=== PATIENT | male | born 1950 | race Caucasian/White ===

== ENCOUNTER 2020-01-15 14:50 | Emergency (ER) | payer MEDICARE ==
[~2020-01-15] VITALS: Ht 172.7 cm; Wt 79.3 kg
[2020-01-15] MEDS ORDERED: MECLIZINE 25 MG TABLET PO ONE (15:30)
--- NOTE | 2020-01-15 15:56 | REPVR ---
PROCEDURE INFORMATION: Exam: XR Chest, 1 View Exam date and time: 01/15/2020 3:45 PM Age: 69 years old Clinical indication: Other: CVA TECHNIQUE: Imaging protocol: XR of the chest Views: 1 view. COMPARISON: No relevant prior studies available. FINDINGS: Lungs: Hyperinflation, without acute airspace disease. Pleural space: No pleural effusion. Heart/Mediastinum: Cardiac silhouette upper limits of normal in size. Vasculature: Ectasia of the thoracic aorta. Bones/joints: Degenerative change. IMPRESSION: Hyperinflation, without acute airspace or pleural disease. Electronically signed by: Srikanth Donnelly On 01/15/2020 15:56:20 PM
[2020-01-15] MEDS ORDERED: ISOVUE-370 76% 100ML VIAL As Ordered ONE (15:58)
[2020-01-15 16:12] LABS: BASO # 0.1 10^3/uL (0.0-0.2); BASO % 0.5 % (0.0-1.0); EOS # 0.1 10^3/uL (0.0-0.5); HEMATOCRIT 44.7 % (42.0-52.0); HEMOGLOBIN 15.3 g/dl (13.5-17.5); LYMPH # 1.6 10^3/uL (1.5-5.0); LYMPH % 16.2 % (24.0-44.0); MEAN CORPUSCULAR HEMOGLOBIN 30.9 pg (27.0-33.0); MEAN CORPUSCULAR HGB CONC 34.2 g/dl (32.0-36.5); MEAN CORPUSCULAR VOLUME 90.3 fl (80.0-96.0); MONO # 0.7 10^3/uL (0.0-0.8); MONO % 7.6 % (0.0-5.0); NEUTROPHILS # 7.2 10^3/uL (1.5-8.5); NEUTROPHILS % 74.3 % (36.0-66.0); PLATELET COUNT, AUTOMATED 239 10^3/uL (150-450); RED BLOOD COUNT 4.95 10^6/uL (4.30-6.10); WHITE BLOOD COUNT 9.7 10^3/uL (4.0-10.0)
[2020-01-15 16:19] VITALS: BP 192/92
[2020-01-15 16:22] LABS: PROTHROMBIN TIME 13.4 SECONDS (11.8-14.0)
[2020-01-15 16:23] LABS: PARTIAL THROMBOPLASTIN TIME 29.8 SECONDS (25.0-38.4)
--- NOTE | 2020-01-15 16:32 | REPVR ---
PROCEDURE INFORMATION: Exam: CT Head Without Contrast Exam date and time: 01/15/2020 4:21 PM Age: 69 years old Clinical indication: Dizziness; Additional info: CVA - nursing interventions must not delay CT TECHNIQUE: Imaging protocol: Computed tomography of the head without contrast. Radiation optimization: All CT scans at this facility use at least one of these dose optimization techniques: automated exposure control; mA and/or kV adjustment per patient size (includes targeted exams where dose is matched to clinical indication); or iterative reconstruction. Other technique: STROKE PROTOCOL was implemented. COMPARISON: No relevant prior studies available. FINDINGS: Brain: Symmetric prominence of the cortical sulci. Minimal small vessel ischemic change. No acute cortical infarct, mass effect, or intracranial hemorrhage. Ventricles: Normal configuration of the ventricles. Bones/joints: No acute calvarial pathology. Sinuses: 6 mm polypoid lesion in the left maxillary sinus. Mastoid air cells: No mastoid effusion. Soft tissues: Unremarkable soft tissues. IMPRESSION: No acute intracranial pathology. ASSESSMENT: ASPECTS (Nithya Stroke Program Early CT Score) is 10. THIS REPORT CONTAINS FINDINGS THAT MAY BE CRITICAL TO PATIENT CARE. The findings were verbally communicated via telephone conference with RIGOBERTO Burrows at 4:32 PM EDT on 01/15/2020. The findings were acknowledged and understood. Electronically signed by: Srikanth Donnelly On 01/15/2020 16:32:57 PM
--- NOTE | 2020-01-15 16:38 | REPVR ---
PROCEDURE INFORMATION: Exam: CT Angiography Neck With Contrast Exam date and time: 01/15/2020 4:21 PM Age: 69 years old Clinical indication: Dizziness and giddiness; Additional info: CVA - nursing interventions must not delay CT TECHNIQUE: Imaging protocol: Computed tomography angiography of the neck with intravenous contrast. 3D rendering (Not supervised by radiologist): MIP and/or 3D reconstructed images were created by the technologist. Radiation optimization: All CT scans at this facility use at least one of these dose optimization techniques: automated exposure control; mA and/or kV adjustment per patient size (includes targeted exams where dose is matched to clinical indication); or iterative reconstruction. Contrast material: ISOVUE 370; Contrast volume: 100 ml; Contrast route: INTRAVENOUS (IV); COMPARISON: No relevant prior studies available. FINDINGS: Right common carotid artery: No stenosis. No dissection or occlusion. Right internal carotid artery: There is calcified plaque in the proximal right internal carotid artery without stenosis. Right external carotid artery: No occlusion or stenosis of the origin. Right vertebral artery: The right vertebral artery is dominant. No stenosis. No dissection. Left common carotid artery: No stenosis. No dissection or occlusion. Left internal carotid artery: There is calcified plaque in the proximal left internal carotid artery without stenosis. Left external carotid artery: No occlusion or stenosis of the origin. Left vertebral artery: The left vertebral artery is markedly obscured by contrast in adjacent venous structures. The left vertebral artery is hypoplastic. No stenosis or dissection identified. Subclavian arteries: There is an aberrant origin of the right subclavian artery. This arises as the most distal vessel of the aortic arch. It passes posterior to the esophagus and trachea to reach the right subclavian region. No stenosis. No aneurysm. Other vasculature: Of additional note is vascular compression of the innominate vein . This results in severe narrowing and extensive opacification of collateral veins by contrast. Bones/joints: No acute fracture. Soft tissues: Normal. No significant soft tissue swelling. IMPRESSION: 1. No carotid or vertebral artery stenosis. 2. Aberrant origin of the right subclavian artery. 3. 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 REFERENCES: NASCET CRITERIA. The degree of internal carotid artery stenosis is based on NASCET criteria. Normal is no stenosis. Mild is less than 50% stenosis. Moderate is 50-69% stenosis. Severe is 70% to 99% stenosis. Total occlusion is no detectable patent lumen. Electronically signed by: Scotty Prater On 01/15/2020 16:38:25 PM
--- NOTE | 2020-01-15 16:44 | REPVR ---
PROCEDURE INFORMATION: Exam: CT Angiography Head With Contrast Exam date and time: 01/15/2020 4:21 PM Age: 69 years old Clinical indication: Dizziness and giddiness; Additional info: CVA - nursing interventions must not delay CT TECHNIQUE: Imaging protocol: Computed tomography angiography of the head with intravenous contrast. 3D rendering (Not supervised by radiologist): MIP and/or 3D reconstructed images were created by the technologist. Radiation optimization: All CT scans at this facility use at least one of these dose optimization techniques: automated exposure control; mA and/or kV adjustment per patient size (includes targeted exams where dose is matched to clinical indication); or iterative reconstruction. Contrast material: ISOVUE 370; Contrast volume: 100 ml; Contrast route: INTRAVENOUS (IV); COMPARISON: No relevant prior studies available. FINDINGS: ANTERIOR CIRCULATION: Right internal carotid artery: Unremarkable. Intracranial segment is patent with no significant stenosis. No aneurysm. Right middle cerebral artery: Unremarkable. No occlusion or significant stenosis. No aneurysm. Right anterior cerebral artery: Unremarkable. No occlusion or significant stenosis. No aneurysm. Left internal carotid artery: Unremarkable. Intracranial segment is patent with no significant stenosis. No aneurysm. Left middle cerebral artery: Unremarkable. No occlusion or significant stenosis. No aneurysm. Left anterior cerebral artery: Unremarkable. No occlusion or significant stenosis. No aneurysm. POSTERIOR CIRCULATION: Right vertebral artery: The right vertebral artery is dominant. No stenosis. No aneurysm. Left vertebral artery: The left vertebral artery is hypoplastic and terminates as the left PICA. Basilar artery: Unremarkable. No occlusion or significant stenosis. No aneurysm. Right posterior cerebral artery: As best seen on series 505 image 59 there is a 2 mm probable infundibulum of the right posterior communicating artery. No aneurysm identified. Left posterior cerebral artery: Unremarkable. No occlusion or significant stenosis. No aneurysm. IMPRESSION: No intracranial stenosis or occlusion. THIS REPORT CONTAINS FINDINGS THAT MAY BE CRITICAL TO PATIENT CARE. The findings were verbally communicated via telephone conference with RIGOBERTO STOKES at 4:40 PM EDT on 01/15/2020, prior to finalized report.. The findings were acknowledged and understood. Electronically signed by: Scotty Prater On 01/15/2020 16:44:30 PM
[2020-01-15] MEDS ORDERED: LOSARTAN 50MG TABLET PO ONE (17:00)
[2020-01-15 17:57] VITALS: BP_SYST 162; BP_SYST 192; BP_DIAS 80; BP_DIAS 92
--- NOTE | 2020-02-07 14:48 | ECGEPIP ---
[facility] - ED Test Date: 2020-01-15 Pat Name: DEBI ARAUJO Department: Room: - Gender: Male Transition Of Care Specialist: : [id number] Requested By: Nicole Thomas Order Number: [id number] Reading MD: Carlotta Conway Measurements Intervals [place] Rate: 69 P: 30 MN: 212 QRS: -13 QRSD: 92 T: -4 QT: 380 QTc: 409 Interpretive Statements SINUS RHYTHM WITH FIRST DEGREE AV BLOCK WITH OCCASIONAL VENTRICULAR PREMATURE COMPLEXES VOLTAGE CRITERIA FOR LVH ABNORMAL ECG NONSPECIFIC STT WAVE ABNORMALITY SEE SCANNED DOWNTIME REPORT.
== END 2020-01-15 18:48 | disposition home or self-care (01) ==
LOC: EDBD 14:50 → M ED 14:50
DX: R01.1 Cardiac murmur, unspecified (principal); R42 Dizziness and giddiness; R94.31 Abnormal electrocardiogram [ECG] [EKG]; I10 Essential (primary) hypertension; I77.89 Other specified disorders of arteries and arterioles; F17.210 Nicotine dependence, cigarettes, uncomplicated
CPT/HCPCS: 36415; 70450; 70496; 70498; 71045; 80047; 84484; 85025; 85610; 85730; 86850; 86900; 86901; 93005; 93041; 94760; 99285; Q9967

== ENCOUNTER → 2020-07-22 | Outpatient (REF) | payer MEDICARE ==
[2020-07-22 13:51] LABS: BLOOD UREA NITROGEN 11 MG/DL (7-18); CALCIUM LEVEL 9.7 MG/DL (8.8-10.2); CARBON DIOXIDE LEVEL 32 MEQ/L (21-32); CHLORIDE LEVEL 103 MEQ/L (98-107); CHOLESTEROL LEVEL 199 MG/DL (<200); CHOLESTEROL RISK RATIO 4.627 (<5); CREATININE FOR GFR 0.99 MG/DL (0.70-1.30); GLOMERULAR FILTRATION RATE > 60.0 (>42); GLUCOSE, FASTING 94 MG/DL (70-100); HDL CHOLESTEROL 43 MG/DL (>40); LDL CHOLESTEROL 131 MG/DL (<100); NON-HDL-C 156 MG/DL; POTASSIUM SERUM 4.9 MEQ/L (3.5-5.1); SODIUM LEVEL 138 MEQ/L (136-145); TRIGLYCERIDES LEVEL 126 MG/DL (<150)
== END ==
LOC: M SFHCPLAZ 10:19
PROVIDERS: ATTEND Family Medicine
DX: I10 Essential (primary) hypertension (principal); Z13.220 Encounter for screening for lipoid disorders; Z13.1 Encounter for screening for diabetes mellitus; Z79.899 Other long term (current) drug therapy
CPT/HCPCS: 36415; 80048; 80061; 83036; G0463

== ENCOUNTER → 2020-08-11 | Outpatient (REF) | payer MEDICARE ==
[2020-08-11 17:32] LABS: ALBUMIN 3.6 GM/DL (3.2-5.2); BILIRUBIN,DIRECT 0.2 MG/DL (0.0-0.2); BILIRUBIN,TOTAL 0.9 MG/DL (0.2-1.0); TOTAL PROTEIN 6.4 GM/DL (6.4-8.2)
== END ==
LOC: M SFHCPLAZ 15:08
PROVIDERS: ATTEND Family Medicine
DX: E78.00 Pure hypercholesterolemia, unspecified (principal)
CPT/HCPCS: 36415; 80076; G0463

== ENCOUNTER → 2022-03-31 | Outpatient (CLI) | payer MEDICARE ==
[2022-03-31 16:47] LABS: HEMATOCRIT 28.7 % (42.0-52.0); MEAN CORPUSCULAR HEMOGLOBIN 34.1 pg (27.0-33.0); MEAN CORPUSCULAR HGB CONC 31.4 g/dl (32.0-36.5); MEAN CORPUSCULAR VOLUME 108.7 fl (80.0-96.0); PLATELET COUNT, AUTOMATED 140 10^3/uL (150-450); RED BLOOD COUNT 2.64 10^6/uL (4.30-6.10); WHITE BLOOD COUNT 8.2 10^3/uL (4.0-10.0)
[2022-03-31 17:13] LABS: ERYTHROCYTE SEDIMENTATION RATE 26 mm/hr (0-20)
[2022-03-31 17:31] LABS: ALBUMIN 3.3 GM/DL (3.2-5.2); ALT/SGPT 20 U/L (12-78); BILIRUBIN,TOTAL 2.9 MG/DL (0.2-1.0); BLOOD UREA NITROGEN 21 MG/DL (7-18); C REACTIVE PROTEIN QUANTITATIV 0.34 MG/DL (0.00-0.30); CALCIUM LEVEL 8.7 MG/DL (8.8-10.2); CARBON DIOXIDE LEVEL 26 MEQ/L (21-32); CHLORIDE LEVEL 104 MEQ/L (98-107); CREATININE FOR GFR 1.09 MG/DL (0.70-1.30); FREE T4 1.04 NG/DL (0.76-1.46); GLOMERULAR FILTRATION RATE > 60.0 (>42); GLUCOSE, FASTING 97 MG/DL (70-100); POTASSIUM SERUM 4.3 MEQ/L (3.5-5.1); SODIUM LEVEL 136 MEQ/L (136-145)
[2022-03-31 19:29] LABS: ATYPICAL LYMPH 1 % (0-5); EOSINOPHILS 8 % (0-3); LYMPHOCYTES 26 % (16-44); MONOCYTES 3 % (0-5); NEUTROPHILS 61 % (28-66)
[2022-03-31 19:30] LABS: ANISOCYTOSIS 3+; PLATELET ESTIMATE DECREASED (NORMAL); POLYCHROMASIA 1+
[2022-03-31 19:32] LABS: BURR CELLS 1+
== END ==
LOC: M WUC 11:09
PROVIDERS: ATTEND Physician Assistant
DX: R63.4 Abnormal weight loss (principal)

== ENCOUNTER → 2022-04-04 | Outpatient (CLI) | payer MEDICARE ==
[2022-04-04 17:18] LABS: HEMATOCRIT 27.5 % (42.0-52.0); HEMOGLOBIN 8.9 g/dl (13.5-17.5); MEAN CORPUSCULAR HEMOGLOBIN 34.8 pg (27.0-33.0); MEAN CORPUSCULAR HGB CONC 32.4 g/dl (32.0-36.5); MEAN CORPUSCULAR VOLUME 107.4 fl (80.0-96.0); PLATELET COUNT, AUTOMATED 149 10^3/uL (150-450); RED BLOOD COUNT 2.56 10^6/uL (4.30-6.10); WHITE BLOOD COUNT 7.3 10^3/uL (4.0-10.0)
[2022-04-04 17:55] LABS: IRON (FE) 76 UG/DL (65-175); PERCENT SATURATION 32.8 % (19.7-50.0); TOTAL IRON BINDING CAPACITY 232 UG/DL (250-450)
[2022-04-04 18:27] LABS: FOLATE 3.2 NG/ML (>5.4); VITAMIN B12 LEVEL > 2000 PG/ML (247-911)
[2022-04-04 19:28] LABS: ANISOCYTOSIS 4+; ATYPICAL LYMPH 9 % (0-5); BLAST CELLS 2 % (0-0); EOSINOPHILS 3 % (0-3); LYMPHOCYTES 20 % (16-44); MICROCYTOSIS 2+; MONOCYTES 5 % (0-5); NEUTROPHILS 57 % (28-66); PLATELET ESTIMATE NORMAL (NORMAL); POLYCHROMASIA 1+
== END ==
LOC: M WUC 14:00
PROVIDERS: ATTEND Physician Assistant
DX: D64.9 Anemia, unspecified (principal)

== ENCOUNTER → 2022-04-14 | Outpatient (REF) | payer MEDICARE ==
[2022-04-14 19:22] LABS: BACTERIA, URINE NONE SEEN; HYALINE CAST, URINE NONE SEEN /lpf (0-1); RBC, URINE NONE SEEN /hpf (0-3); SQUAMOUS EPITHELIAL CELL URINE NONE SEEN /hpf (SMALL AMT); WBC, URINE NONE SEEN /hpf (0-3)
== END ==
LOC: M LAB REF 16:22
PROVIDERS: ATTEND Physician Assistant Medical
DX: R31.9 Hematuria, unspecified (principal)

== ENCOUNTER → 2022-05-16 | Outpatient (REF) | payer MEDICARE ==
[2022-05-16 15:14] LABS: HEMATOCRIT 28.3 % (42.0-52.0); HEMOGLOBIN 8.7 g/dl (13.5-17.5); MEAN CORPUSCULAR HEMOGLOBIN 34.8 pg (27.0-33.0); MEAN CORPUSCULAR HGB CONC 30.7 g/dl (32.0-36.5); MEAN CORPUSCULAR VOLUME 113.2 fl (80.0-96.0)
[2022-05-16 15:16] LABS: PLATELET COUNT, AUTOMATED 71 10^3/uL (150-450)
[2022-05-16 15:22] LABS: WHITE BLOOD COUNT 94.3 10^3/uL (4.0-10.0)
[2022-05-16 15:44] LABS: INR 1.19; PROTHROMBIN TIME 15.4 SECONDS (12.5-14.5)
[2022-05-16 15:45] LABS: PARTIAL THROMBOPLASTIN TIME 30.4 SECONDS (24.8-34.2)
[2022-05-16 16:12] LABS: EOSINOPHILS 3 % (0-3); LYMPHOCYTES 1 % (16-44); METAMYELOCYTES 3 % (0-0); MONOCYTES 2 % (0-5); MYELOCYTES 2 % (0-0); NEUTROPHILS 12 % (28-66); PROMYELOCYTES 3 % (0-0)
[2022-05-16 16:13] LABS: ANISOCYTOSIS 1+; BLAST CELLS 72 % (0-0); HYPOCHROMASIA 1+; PLATELET ESTIMATE DECREASED (NORMAL)
[2022-05-16 16:14] LABS: TEAR DROP CELLS 1+
== END ==
LOC: M LAB REF 14:35
PROVIDERS: ATTEND Internal Medicine Hematology & Oncology
DX: D72.829 Elevated white blood cell count, unspecified (principal)

== ENCOUNTER → 2022-06-06 | Outpatient (REF) | payer MEDICARE ==
[~2022-06-06] MED LIST: FLUC200T4; FOLI1TAB11; LEVO1TAB39; ONDA4TAB6; OXYC-517; PROC10TA5; SENN1TAB89; VALA500T5; VENC100T
[2022-06-06 12:03] LABS: EOS % 2.4 % (0.0-3.0); HEMATOCRIT 24.3 % (42.0-52.0); LYMPH # 0.4 10^3/uL (1.5-5.0); LYMPH % 48.2 % (24.0-44.0); MEAN CORPUSCULAR HEMOGLOBIN 32.8 pg (27.0-33.0); MEAN CORPUSCULAR HGB CONC 32.9 g/dl (32.0-36.5); MEAN CORPUSCULAR VOLUME 99.6 fl (80.0-96.0); MONO # 0.1 10^3/uL (0.0-0.8); MONO % 9.6 % (2.0-8.0); NEUTROPHILS % 38.6 % (36.0-66.0); RED BLOOD COUNT 2.44 10^6/uL (4.30-6.10)
[2022-06-06 12:21] LABS: INR 1.4; NEUTROPHILS # 0.3 10^3/uL (1.5-8.5); PROTHROMBIN TIME 17.4 SECONDS (12.5-14.5); WHITE BLOOD COUNT 0.8 10^3/uL (4.0-10.0)
[2022-06-06 12:22] LABS: PARTIAL THROMBOPLASTIN TIME 37.4 SECONDS (24.8-34.2); PLATELET COUNT, AUTOMATED 36 10^3/uL (150-450)
== END ==
LOC: M LAB REF 12:37
PROVIDERS: ATTEND Internal Medicine Hematology & Oncology
DX: D72.829 Elevated white blood cell count, unspecified (principal)

== ENCOUNTER 2022-06-15 15:00 | Inpatient (IN) | payer MEDICARE ==
[2022-06-15] VITALS (11 sets, daily range): BP systolic 109–155; BP diastolic 65–94
[~2022-06-15 15:00] MED LIST changes: -FLUC200T4; +FLUC200T4 PO; -FOLI1TAB11; +FOLI1TAB11 PO; -LEVO1TAB39; +LEVO1TAB39 PO; -ONDA4TAB6; +ONDA4TAB6 PO; -OXYC-517; +OXYC-517 PO; -PROC10TA5; +PROC10TA5 PO; -SENN1TAB89; +SENN1TAB89 PO; -VALA500T5; +VALA500T5 PO; -VENC100T; +VENC100T PO
[2022-06-15 17:29] LABS: RSV AMPLIFICATION NEGATIVE (NEGATIVE)
[2022-06-15] MEDS ORDERED: HOME MED LIST COMPLETE! XX SCH (17:35)
[2022-06-15] MEDS ORDERED: oxyCODONE 5MG TAB PO PRN (20:05)
[2022-06-15] MEDS ORDERED: PROCHLORPERAZINE 5MG TAB PO PRN (20:05)
[2022-06-15] MEDS ORDERED: SENOKOT S TAB PO PRN (20:05)
[2022-06-15] MEDS: valACYclovir HCL 500 MG TAB PO SCH (22:54)
[2022-06-16 01:20] VITALS: BP 152/81
[2022-06-16 06:32] VITALS: BP 140/81
[2022-06-16 07:32] LABS: EOS % 1.6 % (0.0-3.0); LYMPH # 0.5 10^3/uL (1.5-5.0); LYMPH % 87.1 % (24.0-44.0); MEAN CORPUSCULAR HEMOGLOBIN 31.1 pg (27.0-33.0); MEAN CORPUSCULAR HGB CONC 33.6 g/dl (32.0-36.5); MEAN CORPUSCULAR VOLUME 92.6 fl (80.0-96.0); MONO % 1.6 % (2.0-8.0); NEUTROPHILS % 9.7 % (36.0-66.0); PLATELET COUNT, AUTOMATED 143 10^3/uL (150-450)
[2022-06-16 07:45] LABS: NEUTROPHILS # 0.1 10^3/uL (1.5-8.5); WHITE BLOOD COUNT 0.6 10^3/uL (4.0-10.0)
[2022-06-16 07:46] LABS: HEMOGLOBIN 8.4 g/dl (13.5-17.5)
[2022-06-16 08:04] LABS: MAGNESIUM LEVEL 1.7 MG/DL (1.8-2.4)
[2022-06-16 08:12] LABS: ALBUMIN 2.7 G/DL (3.2-5.2); ALKALINE PHOSPHATASE 91 U/L (46-116); ALT/SGPT 10 U/L (7.0-40); AST/SGOT 14 U/L (<34); BILIRUBIN,TOTAL 1.5 MG/DL (0.3-1.2); BLOOD UREA NITROGEN 22 MG/DL (9-23); CALCIUM LEVEL 8.4 MG/DL (8.3-10.6); CARBON DIOXIDE LEVEL 26 MMOL/L (20-31); CHLORIDE LEVEL 103 MMOL/L (98-107); CREATININE FOR GFR 0.84 MG/DL (0.70-1.30); GLOMERULAR FILTRATION RATE > 60.0 (>42); GLUCOSE, FASTING 95 MG/DL (74-106); POTASSIUM SERUM 4.4 MMOL/L (3.5-5.1); SODIUM LEVEL 133 MMOL/L (136-145); TOTAL PROTEIN 5.5 G/DL (5.7-8.2)
[2022-06-16] MEDS ORDERED: FOLIC ACID 1MG TAB PO SCH (09:00)
[2022-06-16] MEDS ORDERED: FLUCONAZOLE 100 MG TAB PO SCH (09:00)
[2022-06-16] MEDS: valACYclovir HCL 500 MG TAB PO SCH (09:54)
[2022-06-16] MEDS ORDERED: LevoFLOXacin 500 MG TABLET PO SCH (12:00)
== END 2022-06-16 13:47 | disposition home or self-care (01) | DRG 836 ==
LOC: M ED 15:00 → M ED INP 20:01 → ENRESERV 06-16 00:01 → M MSPAV 06-16 01:25
PROVIDERS: ADMIT Internal Medicine; ATTEND Internal Medicine
PROC: 30233N1 Transfusion of Nonautologous Red Blood Cells into Peripheral Vein, Percutaneous Approach (ICD-10-PCS; principal; 2022-06-15)
DX: C92.00 Acute myeloblastic leukemia, not having achieved remission (principal); I10 Essential (primary) hypertension; I48.91 Unspecified atrial fibrillation; D64.9 Anemia, unspecified; Z79.899 Other long term (current) drug therapy

== ENCOUNTER → 2022-07-01 | Outpatient (CLI) | payer MEDICARE ==
[~2022-07-01] MED LIST changes: +ELIQ5TAB PO; +LIDO1CRE42 TOP; +XARE1TAB PO
== END ==
LOC: M RAD 15:05
PROVIDERS: ATTEND Nurse Practitioner
DX: R22.42 Localized swelling, mass and lump, left lower limb (principal); M79.605 Pain in left leg

== ENCOUNTER 2022-10-11 21:37 | Emergency (ER) | payer MEDICARE ==
[~2022-10-11] VITALS: Ht 172.7 cm; Wt 76.2 kg
[~2022-10-11 21:37] MED LIST changes: +SENN-134 PO; -SENN1TAB89 PO; +VENC100T
[2022-10-12 02:00] LABS: BASO % 0.4 % (0.0-1.0); HEMATOCRIT 35.7 % (42.0-52.0); HEMOGLOBIN 12.1 g/dl (13.5-17.5); LYMPH # 0.8 10^3/uL (1.5-5.0); LYMPH % 30.2 % (24.0-44.0); MEAN CORPUSCULAR HEMOGLOBIN 32.9 pg (27.0-33.0); MEAN CORPUSCULAR HGB CONC 33.9 g/dl (32.0-36.5); MONO # 0.1 10^3/uL (0.0-0.8); MONO % 4.7 % (2.0-8.0); NEUTROPHILS # 1.6 10^3/uL (1.5-8.5); NEUTROPHILS % 64.3 % (36.0-66.0); PLATELET COUNT, AUTOMATED 158 10^3/uL (150-450); RED BLOOD COUNT 3.68 10^6/uL (4.30-6.10); WHITE BLOOD COUNT 2.6 10^3/uL (4.0-10.0)
[2022-10-12 02:19] LABS: LIPASE 23 U/L (12-53)
[2022-10-12 02:21] LABS: ALBUMIN 3.1 G/DL (3.2-5.2); ALKALINE PHOSPHATASE 55 U/L (46-116); ALT/SGPT 12 U/L (7.0-40); AST/SGOT 13 U/L (<34); BILIRUBIN,DIRECT 0.3 MG/DL (<0.4); BILIRUBIN,TOTAL 0.9 MG/DL (0.3-1.2); BLOOD UREA NITROGEN 12 MG/DL (9-23); CALCIUM LEVEL 8.8 MG/DL (8.3-10.6); CARBON DIOXIDE LEVEL 26 MMOL/L (20-31); CHLORIDE LEVEL 103 MMOL/L (98-107); CREATININE FOR GFR 0.95 MG/DL (0.70-1.30); GLOMERULAR FILTRATION RATE > 60.0 (>42); GLUCOSE, FASTING 125 MG/DL (74-106); POTASSIUM SERUM 3.8 MMOL/L (3.5-5.1); SODIUM LEVEL 136 MMOL/L (136-145); TOTAL PROTEIN 5.1 G/DL (5.7-8.2)
[2022-10-12] MEDS ORDERED: ISOVUE-370 76% 100ML VIAL As Ordered ONE (02:35)
[2022-10-12 03:30] VITALS: BP 152/83
[2022-10-12] MEDS ORDERED: AUGMENTIN 875 MG TAB PO ONE (05:30)
[2022-10-12] MEDS ORDERED: AMOX875T2 PO (05:32)
== END 2022-10-12 05:52 | disposition home or self-care (01) ==
LOC: M ED 21:37
DX: K57.32 Diverticulitis of large intestine without perforation or abscess without bleeding (principal); R91.1 Solitary pulmonary nodule; G43.909 Migraine, unspecified, not intractable, without status migrainosus; I10 Essential (primary) hypertension; Z86.718 Personal history of other venous thrombosis and embolism; Z79.01 Long term (current) use of anticoagulants; Z79.2 Long term (current) use of antibiotics; Z79.899 Other long term (current) drug therapy
CPT/HCPCS: 71046; 74177; 80048; 80076; 81001; 83605; 83690; 85025; 87040; 87486; 87581; 87633; 87798; 93041; 94760; 96374; 99284; Q9967

== ENCOUNTER → 2022-10-26 | Outpatient (CLI) | payer MEDICARE ==
[~2022-10-26] MED LIST changes: +AMOX875T2 PO; +ISOVUE-370 76% 100ML VIAL As Ordered ONE; -LIDO1CRE42 TOP; +LIDO30CR18 TOP
== END ==
LOC: M RAD 08:06
PROVIDERS: ATTEND Nurse Practitioner
DX: C90.00 Multiple myeloma not having achieved remission (principal)

== ENCOUNTER → 2023-03-15 | Outpatient (REF) | payer MEDICARE ==
[~2023-03-15] MED LIST changes: -ISOVUE-370 76% 100ML VIAL As Ordered ONE
[2023-03-15 14:50] LABS: EOS # 0.1 10^3/uL (0.0-0.5); EOS % 1.7 % (0.0-3.0); HEMOGLOBIN 11.9 g/dl (13.5-17.5); LYMPH # 2.2 10^3/uL (1.5-5.0); LYMPH % 62.4 % (24.0-44.0); MEAN CORPUSCULAR HEMOGLOBIN 34.4 pg (27.0-33.0); MEAN CORPUSCULAR VOLUME 98.3 fl (80.0-96.0); MONO % 27.9 % (2.0-8.0); NEUTROPHILS % 7.7 % (36.0-66.0); RED BLOOD COUNT 3.46 10^6/uL (4.30-6.10); WHITE BLOOD COUNT 3.5 10^3/uL (4.0-10.0)
[2023-03-15 15:10] LABS: NEUTROPHILS # 0.3 10^3/uL (1.5-8.5); PLATELET COUNT, AUTOMATED 65 10^3/uL (150-450)
[2023-03-15 15:24] LABS: ALBUMIN 3.3 G/DL (3.2-5.2); ALKALINE PHOSPHATASE 47 U/L (46-116); ALT/SGPT 10 U/L (7.0-40); AST/SGOT 10 U/L (<34); BILIRUBIN,TOTAL 2.1 MG/DL (0.3-1.2); BLOOD UREA NITROGEN 14 MG/DL (9-23); CALCIUM LEVEL 8.7 MG/DL (8.3-10.6); CARBON DIOXIDE LEVEL 30 MMOL/L (20-31); CHLORIDE LEVEL 101 MMOL/L (98-107); CREATININE FOR GFR 1.05 MG/DL (0.70-1.30); GLOMERULAR FILTRATION RATE > 60.0 (>42); GLUCOSE, FASTING 94 MG/DL (74-106); POTASSIUM SERUM 3.9 MMOL/L (3.5-5.1); SODIUM LEVEL 137 MMOL/L (136-145)
== END ==
LOC: M LAB REF 14:07
PROVIDERS: ATTEND Internal Medicine
DX: C92.A0 Acute myeloid leukemia with multilineage dysplasia, not having achieved remission (principal); D72.829 Elevated white blood cell count, unspecified

== ENCOUNTER → 2023-03-22 | Outpatient (REF) | payer MEDICARE ==
[2023-03-22 08:29] LABS: HEMATOCRIT 35.8 % (42.0-52.0); HEMOGLOBIN 12.2 g/dl (13.5-17.5); MEAN CORPUSCULAR HEMOGLOBIN 33.8 pg (27.0-33.0); MEAN CORPUSCULAR HGB CONC 34.1 g/dl (32.0-36.5); MEAN CORPUSCULAR VOLUME 99.2 fl (80.0-96.0); RED BLOOD COUNT 3.61 10^6/uL (4.30-6.10)
[2023-03-22 08:31] LABS: PLATELET COUNT, AUTOMATED 41 10^3/uL (150-450)
[2023-03-22 08:54] LABS: ALBUMIN 3.6 G/DL (3.2-5.2); ALKALINE PHOSPHATASE 51 U/L (46-116); ALT/SGPT 9 U/L (7.0-40); AST/SGOT 10 U/L (<34); BILIRUBIN,TOTAL 2.2 MG/DL (0.3-1.2); BLOOD UREA NITROGEN 17 MG/DL (9-23); CALCIUM LEVEL 8.8 MG/DL (8.3-10.6); CARBON DIOXIDE LEVEL 30 MMOL/L (20-31); CHLORIDE LEVEL 104 MMOL/L (98-107); CREATININE FOR GFR 1.12 MG/DL (0.70-1.30); GLOMERULAR FILTRATION RATE > 60.0 (>42); GLUCOSE, FASTING 91 MG/DL (74-106); POTASSIUM SERUM 4.2 MMOL/L (3.5-5.1); SODIUM LEVEL 139 MMOL/L (136-145); TOTAL PROTEIN 5.4 G/DL (5.7-8.2)
== END ==
LOC: M LAB REF 07:45
PROVIDERS: ATTEND Nurse Practitioner
DX: C92.A0 Acute myeloid leukemia with multilineage dysplasia, not having achieved remission (principal); D72.829 Elevated white blood cell count, unspecified

== ENCOUNTER 2023-04-07 06:39 | Outpatient (CLI) | payer MEDICARE ==
[~2023-04-07] VITALS: Ht 172.7 cm; Wt 75.4 kg
[~2023-04-07 06:39] MED LIST changes: +ALLO300T2; +ALLO300T2 PO; +ONDA-83 PO
[2023-04-07 06:52] VITALS: BP 164/90; O2SAT 97
[2023-04-07] MEDS ORDERED: diphenhydrAMINE 25MG CAP PO SCH (07:00)
[2023-04-07] MEDS ORDERED: ACETAMINOPHEN TAB 650MG DOSE (2X325MG) PO SCH (07:01)
[2023-04-07] MEDS ORDERED: SODIUM CHLORIDE 0.9% INJ 10 ML SYR IV PRN (07:10)
[2023-04-07 08:15] VITALS: BP 167/97; TEMP 97.6; O2SAT 99
[2023-04-07] MEDS ORDERED: SODIUM CHLORIDE 0.9% INJ 10 ML SYR IV SCH ×2 (09:00)
[2023-04-07 09:21] VITALS: BP 161/92; TEMP 97.6; O2SAT 97
[2023-04-07 11:30] VITALS: BP 158/96; O2SAT 99
== END 2023-04-07 11:30 ==
LOC: M INFU 06:39
PROVIDERS: ATTEND Internal Medicine Medical Oncology
DX: C92.00 Acute myeloblastic leukemia, not having achieved remission (principal)
CPT/HCPCS: 36430; 96523; P9034

== ENCOUNTER 2023-04-19 10:16 | Outpatient (CLI) | payer MEDICARE ==
[~2023-04-19] VITALS: Ht 175.3 cm; Wt 76.0 kg
[2023-04-19 10:20] VITALS: BP 130/95; TEMP 97.3; O2SAT 99
[2023-04-19 12:39] VITALS: BP 130/92; TEMP 97.7; O2SAT 99
[2023-04-19 13:09] VITALS: BP 129/90; TEMP 97.2; O2SAT 98
[2023-04-19 14:15] VITALS: BP 133/89; TEMP 97.6; O2SAT 98
[2023-04-19 14:37] VITALS: BP 129/90; TEMP 97.6; O2SAT 98
[2023-04-19 15:55] VITALS: BP 131/92; TEMP 98.5; O2SAT 99
[2023-04-21] MEDS ORDERED: FLUC200T4 PO (13:50)
== END 2023-04-19 16:50 | disposition home or self-care (01) ==
LOC: M OPCLI4PV 10:16 → M 4MAIN 10:29 → M MSPAV 10:30 → M OPCLI4PV 16:50
PROVIDERS: ATTEND Nurse Practitioner
DX: C92.00 Acute myeloblastic leukemia, not having achieved remission (principal)
CPT/HCPCS: 36430; P9034

== ENCOUNTER → 2023-05-01 | Outpatient (CLI) | payer MEDICARE | LOC: M RAD 09:16 | PROVIDERS: ATTEND Nurse Practitioner | DX: R07.89 Other chest pain (principal) ==

== ENCOUNTER 2023-05-26 20:36 | Inpatient (IN) | payer MEDICARE ==
[~2023-05-26] VITALS: Ht 172.7 cm; Wt 71.4 kg
[2023-05-26] MEDS ORDERED: ACETAMINOPHEN 325 MG TAB PO ONE (21:30)
[2023-05-26] MEDS: NS 1,000 ML IV SCH ×2 (21:43→23:30)
[2023-05-26 21:52] LABS: ABG BASE EXCESS 1.2 (-2.0-2.0); ABG HCO3 24.3 MMOL/L (22.0-26.0); ABG PARTIAL PRESSURE CO2 32.4 mmHg (35.0-45.0); ABG PARTIAL PRESSURE O2 102.4 mmHg (75.0-100.0); ABG STANDARD HCO3 25.6 MMOL/L. (22.0-26.0); ABG TOTAL CO2 25.3 MMOL/L (23.0-31.0); ABG pH (ARTERIAL) 7.493 UNITS (7.350-7.450)
[2023-05-26 22:35] LABS: HEMATOCRIT 26.4 % (42.0-52.0); HEMOGLOBIN 8.3 g/dl (13.5-17.5); LYMPH # 0.4 10^3/uL (1.5-5.0); LYMPH % 47.9 % (24.0-44.0); MEAN CORPUSCULAR HEMOGLOBIN 30.2 pg (27.0-33.0); MEAN CORPUSCULAR HGB CONC 31.4 g/dl (32.0-36.5); MONO # 0.1 10^3/uL (0.0-0.8); MONO % 15.1 % (2.0-8.0); NEUTROPHILS % 23.3 % (36.0-66.0); RED BLOOD COUNT 2.75 10^6/uL (4.30-6.10)
[2023-05-26 22:39] LABS: INR 1.68; PROTHROMBIN TIME 19.3 SECONDS (12.5-14.5)
[2023-05-26 22:45] LABS: NEUTROPHILS # 0.2 10^3/uL (1.5-8.5); PLATELET COUNT, AUTOMATED 13 10^3/uL (150-450); WHITE BLOOD COUNT 0.7 10^3/uL (4.0-10.0)
[2023-05-26] MEDS ORDERED: cefTRIAXone SOD 1 GM in D5W MINI-BAG PLUS 50 ML IV ONE (22:45)
[2023-05-26] MEDS ORDERED: ELIQ5TAB PO (23:11)
[2023-05-26] MEDS ORDERED: HOME MED LIST COMPLETE! XX SCH (23:15)
[2023-05-26 23:58] LABS: ALBUMIN 2.7 G/DL (3.2-5.2); ALKALINE PHOSPHATASE 64 U/L (46-116); ALT/SGPT 10 U/L (7.0-40); AST/SGOT < 8 U/L (<34); BILIRUBIN,DIRECT 0.6 MG/DL (<0.4); BILIRUBIN,TOTAL 1.6 MG/DL (0.3-1.2); BLOOD UREA NITROGEN 15 MG/DL (9-23); CALCIUM LEVEL 7.7 MG/DL (8.3-10.6); CARBON DIOXIDE LEVEL 24 MMOL/L (20-31); CHLORIDE LEVEL 104 MMOL/L (98-107); CK-MB VALUE MASS < 1.0 NG/ML (<3.6); CPK CREATINE PHOSPHOKINASE < 15 U/L (46-171); CREATININE FOR GFR 0.74 MG/DL (0.70-1.30); GLOMERULAR FILTRATION RATE > 60.0 (>42); GLUCOSE, FASTING 115 MG/DL (74-106); POTASSIUM SERUM 3.8 MMOL/L (3.5-5.1); SODIUM LEVEL 135 MMOL/L (136-145); TOTAL PROTEIN 4.9 G/DL (5.7-8.2)
[2023-05-27] VITALS (8 sets, daily range): BP systolic 113–146; BP diastolic 63–96; TEMP 97.5–98.1; O2SAT 96–99
[2023-05-27] MEDS ORDERED: MOM 30ML SUSPENSION UDC PO PRN (00:50)
[2023-05-27] MEDS ORDERED: MAALOX 30 ML SUSP *UDC PO PRN (00:50)
[2023-05-27] MEDS ORDERED: ACETAMINOPHEN TAB 650MG DOSE (2X325MG) PO PRN (00:50)
[2023-05-27] MEDS ORDERED: RAMELTEON 8 MG TAB (ROZEREM) PO PRN (00:55)
[2023-05-27] MEDS ORDERED: PROCHLORPERAZINE 5MG TAB PO PRN (01:15)
[2023-05-27] MEDS ORDERED: SENOKOT S TAB PO PRN (01:15)
[2023-05-27] MEDS ORDERED: SODIUM CHLORIDE 0.9% INJ 10 ML SYR IV PRN (01:15)
[2023-05-27 02:04] LABS: PROCALCITONIN 0.06 ng/ml
[2023-05-27 08:24] LABS: HEMATOCRIT 24.8 % (42.0-52.0); HEMOGLOBIN 7.8 g/dl (13.5-17.5); LYMPH # 0.3 10^3/uL (1.5-5.0); LYMPH % 46.3 % (24.0-44.0); MEAN CORPUSCULAR HEMOGLOBIN 30.1 pg (27.0-33.0); MEAN CORPUSCULAR HGB CONC 31.5 g/dl (32.0-36.5); MEAN CORPUSCULAR VOLUME 95.8 fl (80.0-96.0); MONO # 0.1 10^3/uL (0.0-0.8); MONO % 18.5 % (2.0-8.0); NEUTROPHILS % 25.9 % (36.0-66.0); RED BLOOD COUNT 2.59 10^6/uL (4.30-6.10)
[2023-05-27 08:28] LABS: NEUTROPHILS # 0.1 10^3/uL (1.5-8.5); PLATELET COUNT, AUTOMATED 13 10^3/uL (150-450); WHITE BLOOD COUNT 0.5 10^3/uL (4.0-10.0)
[2023-05-27 09:00] LABS: ALBUMIN 2.4 G/DL (3.2-5.2); ALKALINE PHOSPHATASE 56 U/L (46-116); ALT/SGPT 9 U/L (7.0-40); AST/SGOT 9 U/L (<34); BILIRUBIN,TOTAL 1.2 MG/DL (0.3-1.2); BLOOD UREA NITROGEN 13 MG/DL (9-23); CALCIUM LEVEL 7.6 MG/DL (8.3-10.6); CARBON DIOXIDE LEVEL 25 MMOL/L (20-31); CHLORIDE LEVEL 107 MMOL/L (98-107); CREATININE FOR GFR 0.72 MG/DL (0.70-1.30); GLOMERULAR FILTRATION RATE > 60.0 (>42); GLUCOSE, FASTING 117 MG/DL (74-106); MAGNESIUM LEVEL 1.5 MG/DL (1.8-2.4); POTASSIUM SERUM 3.9 MMOL/L (3.5-5.1); SODIUM LEVEL 137 MMOL/L (136-145); TOTAL PROTEIN 4.3 G/DL (5.7-8.2)
[2023-05-27] MEDS ORDERED: CEFEPIME HCL 1 GM in D5W MINI-BAG PLUS 50 ML IV SCH (09:00)
[2023-05-27] MEDS: DOCUSATE SODIUM 100MG CAPSULE PO SCH ×2 (09:00→21:20)
[2023-05-27] MEDS ORDERED: CEFEPIME HCL 2 GM in D5W MINI-BAG PLUS 50 ML IV SCH (09:00)
[2023-05-27] MEDS ORDERED: LevoFLOXacin 500 MG TABLET PO SCH (09:00)
[2023-05-27] MEDS: valACYclovir HCL 500 MG TAB PO SCH ×2 (09:46→21:20)
[2023-05-27] MEDS: APIXABAN 5 MG TAB (ELIQUIS) PO SCH (09:46)
[2023-05-27] MEDS: allopurinoL 300 MG TAB PO SCH (09:46)
[2023-05-27] MEDS: FLUCONAZOLE 100 MG TAB PO SCH (09:46)
[2023-05-27] MEDS: FOLIC ACID 1MG TAB PO SCH (09:46)
[2023-05-27] MEDS ORDERED: VANCOMYCIN HCL 750 MG, VIAL MATE ADAPTER 1 EACH in D5W 250 ML IV ONE (10:00)
[2023-05-27] MEDS ORDERED: VANCOMYCIN HCL 500 MG in D5W MINI-BAG PLUS 100 ML IV ONE (11:00)
[2023-05-27] MEDS: SODIUM CHLORIDE 0.9% INJ 10 ML SYR IV SCH (11:02)
[2023-05-27] MEDS ORDERED: BENZONATATE 100MG CAPSULE PO PRN (11:05)
[2023-05-27 11:06] LABS: PERCENT SATURATION 10.5 % (19.7-50.0)
[2023-05-27 11:14] LABS: FOLATE 21.17 NG/ML (>5.4)
[2023-05-27] MEDS: FILGRASTIM 480 MCG/0.8 ML SYRINGE **SC ADMINISTRATION ONLY SC SCH (12:25)
[2023-05-27] MEDS: CEFEPIME HCL 2 GM in D5W MINI-BAG PLUS 50 ML IV SCH (17:07)
[2023-05-27] MEDS: VENCLEXTA 100 MG PO SCH (17:07)
[2023-05-27] MEDS: VANCOMYCIN HCL 750 MG, VIAL MATE ADAPTER 1 EACH in D5W 250 ML IV SCH (21:20)
[2023-05-28] MEDS: CEFEPIME HCL 2 GM in D5W MINI-BAG PLUS 50 ML IV SCH ×2 (01:21→08:12)
[2023-05-28 06:11] VITALS: BP 112/64; TEMP 97.7; O2SAT 97
[2023-05-28 06:44] LABS: HEMATOCRIT 26.8 % (42.0-52.0); HEMOGLOBIN 8.4 g/dl (13.5-17.5); LYMPH # 0.4 10^3/uL (1.5-5.0); LYMPH % 42.2 % (24.0-44.0); MEAN CORPUSCULAR HEMOGLOBIN 30.1 pg (27.0-33.0); MEAN CORPUSCULAR HGB CONC 31.3 g/dl (32.0-36.5); MEAN CORPUSCULAR VOLUME 96.1 fl (80.0-96.0); MONO # 0.1 10^3/uL (0.0-0.8); MONO % 14.4 % (2.0-8.0); NEUTROPHILS % 36.7 % (36.0-66.0); RED BLOOD COUNT 2.79 10^6/uL (4.30-6.10)
[2023-05-28 06:53] LABS: NEUTROPHILS # 0.3 10^3/uL (1.5-8.5); PLATELET COUNT, AUTOMATED 13 10^3/uL (150-450); WHITE BLOOD COUNT 0.9 10^3/uL (4.0-10.0)
[2023-05-28 07:52] LABS: ALBUMIN 2.3 G/DL (3.2-5.2); ALKALINE PHOSPHATASE 60 U/L (46-116); ALT/SGPT 13 U/L (7.0-40); AST/SGOT 11 U/L (<34); BLOOD UREA NITROGEN 12 MG/DL (9-23); CALCIUM LEVEL 7.7 MG/DL (8.3-10.6); CARBON DIOXIDE LEVEL 25 MMOL/L (20-31); CHLORIDE LEVEL 105 MMOL/L (98-107); CREATININE FOR GFR 0.76 MG/DL (0.70-1.30); GLOMERULAR FILTRATION RATE > 60.0 (>42); GLUCOSE, FASTING 116 MG/DL (74-106); MAGNESIUM LEVEL 1.5 MG/DL (1.8-2.4); POTASSIUM SERUM 3.7 MMOL/L (3.5-5.1); SODIUM LEVEL 137 MMOL/L (136-145); TOTAL PROTEIN 4.6 G/DL (5.7-8.2)
[2023-05-28] MEDS: VENCLEXTA 100 MG PO SCH (09:13)
[2023-05-28] MEDS: MAG SULF 1GM/100ML (MAG RUN) 1 GM in IV 1 EA IV SCH ×2 (09:13→11:19)
[2023-05-28] MEDS: allopurinoL 300 MG TAB PO SCH (09:14)
[2023-05-28] MEDS: FLUCONAZOLE 100 MG TAB PO SCH (09:14)
[2023-05-28] MEDS: APIXABAN 5 MG TAB (ELIQUIS) PO SCH (09:14)
[2023-05-28] MEDS: DOCUSATE SODIUM 100MG CAPSULE PO SCH (09:14)
[2023-05-28] MEDS: valACYclovir HCL 500 MG TAB PO SCH (09:14)
[2023-05-28] MEDS: FOLIC ACID 1MG TAB PO SCH (09:14)
[2023-05-28] MEDS: SODIUM CHLORIDE 0.9% INJ 10 ML SYR IV SCH (09:14)
[2023-05-28] MEDS: VANCOMYCIN HCL 750 MG, VIAL MATE ADAPTER 1 EACH in D5W 250 ML IV SCH (10:00)
[2023-05-28] MEDS: FILGRASTIM 480 MCG/0.8 ML SYRINGE **SC ADMINISTRATION ONLY SC SCH (11:19)
== END 2023-05-28 13:32 | disposition home or self-care (01) | DRG 809 ==
LOC: M ED 20:36 → M ED INP 05-27 00:03 → M MSPAV 05-27 01:05
PROVIDERS: ADMIT Internal Medicine; ATTEND Internal Medicine
PROC: 30233N1 Transfusion of Nonautologous Red Blood Cells into Peripheral Vein, Percutaneous Approach (ICD-10-PCS; principal; 2023-05-27)
DX: D61.810 Antineoplastic chemotherapy induced pancytopenia (principal); C92.00 Acute myeloblastic leukemia, not having achieved remission; I10 Essential (primary) hypertension; E83.42 Hypomagnesemia; G47.00 Insomnia, unspecified; Z86.718 Personal history of other venous thrombosis and embolism; D70.9 Neutropenia, unspecified; Z79.01 Long term (current) use of anticoagulants; Z79.899 Other long term (current) drug therapy; B97.89 Other viral agents as the cause of diseases classified elsewhere; I44.0 Atrioventricular block, first degree

== ENCOUNTER 2023-08-02 14:19 | Inpatient (IN) | payer MEDICARE ==
[~2023-08-02] VITALS: Ht 172.7 cm; Wt 73.4 kg
[~2023-08-02 14:19] MED LIST changes: -ALLO10TA PO; -HYDR500C PO; -URSO300C3 PO; -VFEN200T PO
[2023-08-02 16:00] VITALS: BP 146/66; TEMP 98.1; O2SAT 98
[2023-08-02] MEDS ORDERED: MAALOX 30 ML SUSP *UDC PO PRN (16:05)
[2023-08-02] MEDS ORDERED: MOM 30ML SUSPENSION UDC PO PRN (16:05)
[2023-08-02 16:36] LABS: HEMATOCRIT 27.4 % (42.0-52.0); HEMOGLOBIN 8.1 g/dl (13.5-17.5); MEAN CORPUSCULAR HEMOGLOBIN 28.6 pg (27.0-33.0); MEAN CORPUSCULAR HGB CONC 29.6 g/dl (32.0-36.5); MEAN CORPUSCULAR VOLUME 96.8 fl (80.0-96.0); RED BLOOD COUNT 2.83 10^6/uL (4.30-6.10)
[2023-08-02 16:42] LABS: PLATELET COUNT, AUTOMATED 21 10^3/uL (150-450); WHITE BLOOD COUNT 57.5 10^3/uL (4.0-10.0)
[2023-08-02 17:00] LABS: INR 1.38; PROTHROMBIN TIME 16.5 SECONDS (12.5-14.5)
[2023-08-02 17:02] LABS: CK-MB VALUE MASS < 1.0 NG/ML (<3.6)
[2023-08-02 17:03] LABS: ALBUMIN 2.8 G/DL (3.2-5.2); ALKALINE PHOSPHATASE 99 U/L (46-116); ALT/SGPT 16 U/L (7.0-40); AST/SGOT 12 U/L (<34); BLOOD UREA NITROGEN 20 MG/DL (9-23); CARBON DIOXIDE LEVEL 26 MMOL/L (20-31); CHLORIDE LEVEL 99 MMOL/L (98-107); CPK CREATINE PHOSPHOKINASE < 15 U/L (46-171); CREATININE FOR GFR 1.06 MG/DL (0.70-1.30); GLOMERULAR FILTRATION RATE > 60.0 (>42); GLUCOSE, FASTING 112 MG/DL (74-106); POTASSIUM SERUM 3.9 MMOL/L (3.5-5.1); SODIUM LEVEL 131 MMOL/L (136-145); TOTAL PROTEIN 6.3 G/DL (5.7-8.2)
[2023-08-02 17:10] LABS: PROCALCITONIN 0.12 ng/ml
[2023-08-02] MEDS ORDERED: VANCOMYCIN HCL 1,000 MG, VIAL MATE ADAPTER 1 EACH in D5W 250 ML IV SCH (17:15)
[2023-08-02] MEDS ORDERED: ISOVUE-370 76% 100ML VIAL As Ordered ONE (17:26)
[2023-08-02 17:39] LABS: NEUTROPHILS 2 % (28-66)
[2023-08-02 17:41] LABS: ATYPICAL LYMPH 92 % (0-5); BLAST CELLS 6 % (0-0); PLATELET ESTIMATE MARKED DECREASE (NORMAL)
[2023-08-02 17:42] LABS: ANISOCYTOSIS 2+; POIKILOCYTOSIS 1+; POLYCHROMASIA 2+; TEAR DROP CELLS 1+
[2023-08-02] MEDS: NS 1,000 ML IV SCH (18:16)
[2023-08-02] MEDS: LevoFLOXacin IV 750 MG in IV 1 EA IV SCH (18:47)
[2023-08-02 18:58] LABS: FREE T4 0.89 NG/DL (0.89-1.76); THYROID STIMULATING HORMONE 1.376 uIU/ML (0.55-4.78)
[2023-08-02] MEDS ORDERED: URSO300C3 PO (19:17)
[2023-08-02] MEDS ORDERED: FLUC200T4 PO (19:17)
[2023-08-02] MEDS ORDERED: HOME MED LIST COMPLETE! XX SCH (19:20)
[2023-08-02 20:01] VITALS: BP 109/58; TEMP 97.8; O2SAT 99
[2023-08-02] MEDS: LACTOBACILLUS ACIDOPHILUS CAP (BACID) PO SCH (20:41)
[2023-08-02] MEDS: guaiFENesin ER TABLET 600 MG TAB PO SCH (20:41)
[2023-08-02] MEDS: VANCOMYCIN HCL 750 MG, VIAL MATE ADAPTER 1 EACH in D5W 250 ML IV ONE ×2 (20:43→22:14)
[2023-08-02] MEDS: valACYclovir HCL 500 MG TAB PO SCH (20:53)
[2023-08-02] MEDS: DOCUSATE SODIUM 100MG CAPSULE PO SCH (20:53)
[2023-08-02] MEDS: FLUCONAZOLE 100 MG TAB PO SCH (20:53)
[2023-08-02] MEDS: ursodioL 300MG CAP PO SCH (20:53)
[2023-08-02] MEDS: RAMELTEON 8 MG TAB (ROZEREM) PO PRN (22:19)
[2023-08-02 23:50] VITALS: BP 105/59; TEMP 97.1; O2SAT 97
[2023-08-03] VITALS (16 sets, daily range): BP systolic 104–131; BP diastolic 55–66; TEMP 97.8–99.6; O2SAT 96–100
[2023-08-03] MEDS: metroNIDAZOLE 500 MG in IV 1 EA IV SCH (01:21)
[2023-08-03] MEDS: CEFEPIME HCL 1 GM in D5W MINI-BAG PLUS 50 ML IV SCH (02:06)
[2023-08-03] MEDS: VANCOMYCIN HCL 1,000 MG, VIAL MATE ADAPTER 1 EACH in D5W 250 ML IV SCH (04:21)
[2023-08-03 06:06] LABS: HEMATOCRIT 21.1 % (42.0-52.0); LYMPH % 49.2 % (24.0-44.0); MEAN CORPUSCULAR HEMOGLOBIN 28.9 pg (27.0-33.0); MEAN CORPUSCULAR HGB CONC 29.9 g/dl (32.0-36.5); MEAN CORPUSCULAR VOLUME 96.8 fl (80.0-96.0); MONO % 48.4 % (2.0-8.0); NEUTROPHILS % 1.4 % (36.0-66.0); RED BLOOD COUNT 2.18 10^6/uL (4.30-6.10)
[2023-08-03 06:08] LABS: HEMOGLOBIN 6.3 g/dl (13.5-17.5); MONO # 25.6 10^3/uL (0.0-0.8); NEUTROPHILS # 0.7 10^3/uL (1.5-8.5); PLATELET COUNT, AUTOMATED 15 10^3/uL (150-450); WHITE BLOOD COUNT 52.8 10^3/uL (4.0-10.0)
[2023-08-03 06:52] LABS: ALKALINE PHOSPHATASE 94 U/L (46-116); ALT/SGPT 15 U/L (7.0-40); AST/SGOT 12 U/L (<34); BILIRUBIN,TOTAL 1.4 MG/DL (0.3-1.2); BLOOD UREA NITROGEN 17 MG/DL (9-23); CARBON DIOXIDE LEVEL 24 MMOL/L (20-31); CHLORIDE LEVEL 101 MMOL/L (98-107); CREATININE FOR GFR 0.99 MG/DL (0.70-1.30); GLOMERULAR FILTRATION RATE > 60.0 (>42); GLUCOSE, FASTING 116 MG/DL (74-106); MAGNESIUM LEVEL 1.5 MG/DL (1.8-2.4); POTASSIUM SERUM 4.1 MMOL/L (3.5-5.1); SODIUM LEVEL 131 MMOL/L (136-145); TOTAL PROTEIN 4.9 G/DL (5.7-8.2)
[2023-08-03] MEDS: CEFEPIME HCL 2 GM in D5W MINI-BAG PLUS 50 ML IV SCH (08:39)
[2023-08-03] MEDS: MAG SULF 1GM/100ML (MAG RUN) 1 GM in IV 1 EA IV SCH (09:32)
[2023-08-03 13:02] LABS: URIC ACID 4.5 MG/DL (3.7-9.2)
[2023-08-03] MEDS: NS 1,000 ML IV SCH (14:05)
[2023-08-03] MEDS: allopurinoL 100 MG TAB PO SCH (14:05)
[2023-08-03] MEDS: HYDROXYUREA 500 MG CAP PO SCH (16:30)
[2023-08-03] MEDS ORDERED: SODIUM CHLORIDE HYPERTONIC 3% 4ML NEB SOL NEB ONE (17:00)
[2023-08-03] MEDS: ACETAMINOPHEN TAB 650MG DOSE (2X325MG) PO PRN (17:45)
[2023-08-03] MEDS: VORICONAZOLE 200MG TABLET (VFEND) PO SCH (18:47)
[2023-08-03 20:16] LABS: URIC ACID 3.8 MG/DL (3.7-9.2)
[2023-08-03 20:19] LABS: BLOOD UREA NITROGEN 15 MG/DL (9-23); CALCIUM LEVEL 7.7 MG/DL (8.3-10.6); CARBON DIOXIDE LEVEL 24 MMOL/L (20-31); CHLORIDE LEVEL 101 MMOL/L (98-107); CREATININE FOR GFR 0.87 MG/DL (0.70-1.30); GLOMERULAR FILTRATION RATE > 60.0 (>42); GLUCOSE, FASTING 146 MG/DL (74-106); MAGNESIUM LEVEL 1.8 MG/DL (1.8-2.4); PHOSPHORUS LEVEL 3.2 MG/DL (2.4-5.1); POTASSIUM SERUM 3.8 MMOL/L (3.5-5.1); SODIUM LEVEL 131 MMOL/L (136-145)
[2023-08-03] MEDS ORDERED: VFEN200T PO (23:34)
[2023-08-03] MEDS ORDERED: ALLO10TA PO (23:34)
[2023-08-03] MEDS ORDERED: HYDR500C PO (23:34)
[2023-08-04 00:59] LABS: URIC ACID 3.5 MG/DL (3.7-9.2)
[2023-08-04 01:02] LABS: BLOOD UREA NITROGEN 16 MG/DL (9-23); CALCIUM LEVEL 7.9 MG/DL (8.3-10.6); CARBON DIOXIDE LEVEL 26 MMOL/L (20-31); CHLORIDE LEVEL 101 MMOL/L (98-107); CREATININE FOR GFR 0.91 MG/DL (0.70-1.30); GLOMERULAR FILTRATION RATE > 60.0 (>42); GLUCOSE, FASTING 128 MG/DL (74-106); MAGNESIUM LEVEL 1.9 MG/DL (1.8-2.4); PHOSPHORUS LEVEL 3.6 MG/DL (2.4-5.1); POTASSIUM SERUM 4.3 MMOL/L (3.5-5.1); SODIUM LEVEL 131 MMOL/L (136-145)
[2023-08-04 03:16] VITALS: BP 130/62; TEMP 99.3; O2SAT 98
[2023-08-04 04:49] LABS: BASO % 0.1 % (0.0-1.0); HEMATOCRIT 25.3 % (42.0-52.0); HEMOGLOBIN 7.8 g/dl (13.5-17.5); LYMPH # 27.6 10^3/uL (1.5-5.0); LYMPH % 54.4 % (24.0-44.0); MEAN CORPUSCULAR HEMOGLOBIN 28.8 pg (27.0-33.0); MEAN CORPUSCULAR HGB CONC 30.8 g/dl (32.0-36.5); MEAN CORPUSCULAR VOLUME 93.4 fl (80.0-96.0); MONO % 43.1 % (2.0-8.0); NEUTROPHILS % 1.4 % (36.0-66.0); RED BLOOD COUNT 2.71 10^6/uL (4.30-6.10)
[2023-08-04 04:50] LABS: MONO # 21.9 10^3/uL (0.0-0.8); NEUTROPHILS # 0.7 10^3/uL (1.5-8.5)
[2023-08-04 04:51] LABS: PLATELET COUNT, AUTOMATED 27 10^3/uL (150-450); WHITE BLOOD COUNT 50.8 10^3/uL (4.0-10.0)
[2023-08-04 05:06] LABS: URIC ACID 3.7 MG/DL (3.7-9.2)
[2023-08-04 05:09] LABS: BLOOD UREA NITROGEN 14 MG/DL (9-23); CALCIUM LEVEL 7.7 MG/DL (8.3-10.6); CARBON DIOXIDE LEVEL 24 MMOL/L (20-31); CHLORIDE LEVEL 102 MMOL/L (98-107); CREATININE FOR GFR 0.86 MG/DL (0.70-1.30); GLOMERULAR FILTRATION RATE > 60.0 (>42); GLUCOSE, FASTING 133 MG/DL (74-106); MAGNESIUM LEVEL 1.8 MG/DL (1.8-2.4); PHOSPHORUS LEVEL 3.3 MG/DL (2.4-5.1); POTASSIUM SERUM 3.9 MMOL/L (3.5-5.1); SODIUM LEVEL 130 MMOL/L (136-145)
[2023-08-04 05:10] LABS: ALBUMIN 2.1 G/DL (3.2-5.2); ALKALINE PHOSPHATASE 87 U/L (46-116); ALT/SGPT 13 U/L (7.0-40); AST/SGOT 10 U/L (<34); BILIRUBIN,TOTAL 1.3 MG/DL (0.3-1.2); BLOOD UREA NITROGEN 14 MG/DL (9-23); CALCIUM LEVEL 7.7 MG/DL (8.3-10.6); CARBON DIOXIDE LEVEL 25 MMOL/L (20-31); CHLORIDE LEVEL 103 MMOL/L (98-107); CREATININE FOR GFR 0.91 MG/DL (0.70-1.30); GLOMERULAR FILTRATION RATE > 60.0 (>42); GLUCOSE, FASTING 132 MG/DL (74-106); MAGNESIUM LEVEL 1.8 MG/DL (1.8-2.4); PHOSPHORUS LEVEL 3.3 MG/DL (2.4-5.1); POTASSIUM SERUM 4.1 MMOL/L (3.5-5.1); SODIUM LEVEL 133 MMOL/L (136-145); TOTAL PROTEIN 5.1 G/DL (5.7-8.2)
[2023-08-04 06:23] VITALS: BP 130/62; TEMP 98.6; O2SAT 99
[2023-08-04] MEDS ORDERED: VORICONAZOLE 200MG TABLET (VFEND) PO SCH (21:00)
== END 2023-08-04 07:13 | disposition short-term general hospital (02) | DRG 871 ==
LOC: M PCU 15:34
PROVIDERS: ADMIT Internal Medicine; ATTEND Internal Medicine
PROC: 30233N1 Transfusion of Nonautologous Red Blood Cells into Peripheral Vein, Percutaneous Approach (ICD-10-PCS; principal; 2023-08-03)
PROC: 30233R1 Transfusion of Nonautologous Platelets into Peripheral Vein, Percutaneous Approach (ICD-10-PCS; 2023-08-03)
DX: A41.9 Sepsis, unspecified organism (principal); J18.9 Pneumonia, unspecified organism; D61.810 Antineoplastic chemotherapy induced pancytopenia; C92.00 Acute myeloblastic leukemia, not having achieved remission; D84.9 Immunodeficiency, unspecified; G47.00 Insomnia, unspecified; D69.6 Thrombocytopenia, unspecified; D53.9 Nutritional anemia, unspecified; I10 Essential (primary) hypertension; Z86.718 Personal history of other venous thrombosis and embolism; Z79.899 Other long term (current) drug therapy; I44.0 Atrioventricular block, first degree

== ENCOUNTER → 2023-08-02 | Outpatient (CLI) | payer MEDICARE ==
[~2023-08-02] MED LIST changes: +ALLO10TA PO; +CEPH500C PO; +CIPR-249 PO; +GNP250TA9 PO; +HYDR500C PO; +LOMO2.5T PO; +ONDA4TAB6; +POTA-151 PO; +URSO300C3 PO; +VFEN200T PO
== END ==
LOC: M RAD 10:18
PROVIDERS: ATTEND Nurse Practitioner
DX: C92.A0 Acute myeloid leukemia with multilineage dysplasia, not having achieved remission (principal)